=== PATIENT | male | born 1990 | race American Indian/Alaskan Native ===

== ENCOUNTER 2016-09-27 23:41 | Emergency (ER) | payer SELFPAY ==
[2016-09-28] MEDS ORDERED: ZITHROMAX PO ONE (03:48)
[2016-09-28] MEDS ORDERED: ROCEPHIN IM ONE (03:48)
[2016-09-28] MEDS ORDERED: XYLOCAINE 1% MPF 5 mL INFILTRATI ONE (03:48)
--- NOTE | 2016-09-28 03:55 | Emergency Department Report ---
ED General Adult HPI - General Chief complaint: Skin/Abscess/Foreign Body Stated complaint: RASH ON PRIVATE AREA Time Seen by Provider: 09/28/16 03:29 Source: patient Mode of arrival: Ambulatory Limitations: No Limitations - History of Present Illness Initial comments: pt is a 26 y/o aam who presents for chancroid to penile shaft x 3 days last contact 4 days ago pt denies penile discharge no abdominal pain no n/v no fever or chills - Related Data Previous Rx's Medication Instructions Recorded Last Taken Type Acetaminophen/Codeine [Tylenol #3] 1 tab PO Q4HR PRN #20 tablet 05/18/14 Unknown Rx Cephalexin [Keflex] 500 mg PO Q6HR #30 capsule 05/18/14 Unknown Rx Nystatin/Triamcin [Mycolog Cream] 10 applic TP BID #90 tube 05/18/14 Unknown Rx Hydrocortisone 1% [Hydrocortisone 1 applicatio TP TID #1 tube 07/13/14 Unknown Rx 1% CREAM] Acetaminophen/Codeine [Tylenol #3] 1 tab PO Q6H PRN #10 tab 10/07/14 Unknown Rx Cephalexin [Keflex] 500 mg PO Q12HR #6 cap 10/07/14 Unknown Rx Cephalexin [Keflex] 500 mg PO Q8HR #21 cap 10/10/14 Unknown Rx HYDROcodone/APAP 7.5-325 [[place] 1 each PO Q6HR PRN #20 tablet 10/10/14 Unknown Rx 7.5/325] Amoxicillin 500 mg PO BID #20 capsule 02/05/16 Unknown Rx Ibuprofen [Motrin] 400 mg PO Q8H PRN #20 tablet 02/05/16 Unknown Rx Doxycycline [Vibramycin CAP] 100 mg PO Q12HR #20 capsule 09/28/16 Unknown Rx Allergies Allergy/AdvReac Type Severity Reaction Status Date / Time Fish Containing Products Allergy Swelling Verified 02/05/16 07:00 pollen Allergy Headache Uncoded 02/05/16 07:00 ED Review of Systems ROS: Stated complaint: RASH ON PRIVATE AREA Other details as noted in HPI Constitutional: denies: chills, fever Eyes: denies: eye pain, eye discharge, vision change ENT: denies: ear pain, throat pain Respiratory: denies: cough, shortness of breath, wheezing Cardiovascular: denies: chest pain, palpitations Endocrine: no symptoms reported Gastrointestinal: denies: abdominal pain, nausea, diarrhea Genitourinary: denies: urgency, dysuria Musculoskeletal: denies: back pain, joint swelling, arthralgia Skin: denies: rash, lesions Neurological: denies: headache, weakness, paresthesias Psychiatric: denies: anxiety, depression Hematological/Lymphatic: as per HPI ED Past Medical Hx - Past Medical History Previous Medical History?: Yes Hx Hypertension: No Hx CVA: No Hx Congestive Heart Failure: No Hx Diabetes: No Hx GERD: No Hx Renal Disease: No Hx Sickle Cell Disease: No Hx Arthritis: No Hx Headaches / Migraines: No Hx Seizures: No Hx Kidney Stones: No Additional medical history: eczemia - Surgical History Past Surgical History?: No Hx Coronary Stent: No Hx Internal Defibrillator: No Hx Cholecystectomy: No Hx Appendectomy: No Hx Breast Surgery: No - Social History Smoking Status: Never Smoker Substance Use Type: Alcohol, Marijuana - Medications Home Medications: Home Medications Medication Instructions Recorded Confirmed Last Taken Type Acetaminophen/Codeine [Tylenol #3] 1 tab PO Q4HR PRN #20 tablet 05/18/14 Unknown Rx Cephalexin [Keflex] 500 mg PO Q6HR #30 capsule 05/18/14 Unknown Rx Nystatin/Triamcin [Mycolog Cream] 10 applic TP BID #90 tube 05/18/14 Unknown Rx Hydrocortisone 1% [Hydrocortisone 1 applicatio TP TID #1 tube 07/13/14 Unknown Rx 1% CREAM] Acetaminophen/Codeine [Tylenol #3] 1 tab PO Q6H PRN #10 tab 10/07/14 Unknown Rx Cephalexin [Keflex] 500 mg PO Q12HR #6 cap 10/07/14 Unknown Rx Cephalexin [Keflex] 500 mg PO Q8HR #21 cap 10/10/14 Unknown Rx HYDROcodone/APAP 7.5-325 [[place] 1 each PO Q6HR PRN #20 tablet 10/10/14 Unknown Rx 7.5/325] Amoxicillin 500 mg PO BID #20 capsule 02/05/16 Unknown Rx Ibuprofen [Motrin] 400 mg PO Q8H PRN #20 tablet 02/05/16 Unknown Rx Doxycycline [Vibramycin CAP] 100 mg PO Q12HR #20 capsule 09/28/16 Unknown Rx ED Physical Exam - General Limitations: No Limitations General appearance: alert, in no apparent distress - Head Head exam: Present: atraumatic, normocephalic - Eye Eye exam: Present: normal appearance - ENT ENT exam: Present: mucous membranes moist - Neck Neck exam: Present: normal inspection - Respiratory Respiratory exam: Present: normal lung sounds bilaterally. Absent: respiratory distress - Cardiovascular Cardiovascular Exam: Present: regular rate, normal rhythm. Absent: systolic murmur, diastolic murmur, rubs, gallop - GI/Abdominal GI/Abdominal exam: Present: soft, normal bowel sounds - Rectal Rectal exam: Present: deferred - exam: Present: circumcision. Absent: testicular tenderness, urethral discharge, scrotal swelling, vertical testicular lie External exam: Present: lesions (singular lesion painful yellow encrusted painful to touch no drainage noted ). Absent: erythema, swelling, lacerations, ecchymosis, bleeding - Extremities Exam Extremities exam: Present: normal inspection - Back Exam Back exam: Present: normal inspection - Neurological Exam Neurological exam: Present: alert, oriented X3 - Psychiatric Psychiatric exam: Present: normal affect, normal mood - Skin Skin exam: Present: warm, dry, intact, normal color. Absent: rash ED Course Vital Signs 09/28/16 00:02 Temperature 98.2 F Pulse Rate 63 Respiratory 18 Rate Blood Pressure 104/69 O2 Sat by Pulse 100 Oximetry ED Medical Decision Making - Medical Decision Making pt is a26 y/o aam who presents for chancroid sore to penile shaft x 3 days lesion less than 1 cm yellow encrusted painful to touch there are no other satellite lesions no rash no penile discharge no testicular pain or swelling Critical care attestation.: If time is entered above; I have spent that time in minutes in the direct care of this critically ill patient, excluding procedure time. ED Disposition Clinical Impression: Chancroid in male Disposition: DC-01 TO HOME OR SELFCARE Is pt being admited?: No Does the pt Need Aspirin: No Condition: Good Instructions: Sexually Transmitted Diseases (ED) Prescriptions: Doxycycline [Vibramycin CAP] 100 mg PO Q12HR #20 capsule Referrals: PRIMARY CARE, [Primary Care Provider] - 3-5 Days Forms: Work/School Release Form(ED) Time of Disposition: 04:01
[2016-09-28 04:35] VITALS: BP 133/83
== END 2016-09-28 04:46 | disposition home or self-care (01) ==
LOC: ED 23:41
DX: A57 Chancroid (principal); F12.10 Cannabis abuse, uncomplicated; Z88.8 Allergy status to other drugs, medicaments and biological substances; Z91.013 Allergy to seafood
CPT/HCPCS: 96372; 99282; J0696

== ENCOUNTER 2016-12-24 18:47 | Emergency (ER) | payer OTHER ==
[2016-12-24 20:56] LABS: Bilirubin,Urine NEG (Negative); Blood,Urine NEG (Negative); Ketones,Urine NEG (Negative); Leukocyte Esterase,Urine NEG (Negative); Mucus,Urine 1+ /HPF; Nitrite,Urine NEG (Negative); Protein,Urine <15 mg/dL mg/dL (Negative)
[2016-12-25] MEDS ORDERED: XYLOCAINE 1% MPF 5 mL INFILTRATI ONE (00:45)
[2016-12-25] MEDS ORDERED: ROCEPHIN IM ONE (00:45)
[2016-12-25] MEDS ORDERED: ZITHROMAX PO ONE (00:45)
--- NOTE | 2016-12-25 00:48 | Emergency Department Report ---
ED Male HPI - General Chief complaint: Urogenital-Male Stated complaint: POSSIBLE STD Time Seen by Provider: 12/25/16 00:31 Source: patient Mode of arrival: Ambulatory Limitations: No Limitations - History of Present Illness Initial comments: 26-year-old male past medical history Chlamydia and gonorrhea presents with complaint of 2 days of dysuria. Patient states he has some burning with urination and also had some burning during sex. Patient states burning sensation in his in his urethra. Patient states that his current female sex partner was diagnosed with Trichomonas this week and is currently being treated for it. Patient states she has had unprotected sex with her. Denies fevers chills abdominal pain rash and genitourinary region testicular swelling nausea or vomiting. Patient's last episode of Chlamydia/gonorrhea was in September 2016. Treated in the ED. Onset/Timin -: days(s) Location: penis Quality: burning Worsens with: urination - Related Data Sexually active: Yes Previous Rx's Medication Instructions Recorded Last Taken Type Acetaminophen/Codeine [Tylenol #3] 1 tab PO Q4HR PRN #20 tablet 05/18/14 Unknown Rx Cephalexin [Keflex] 500 mg PO Q6HR #30 capsule 05/18/14 Unknown Rx Nystatin/Triamcin [Mycolog Cream] 10 applic TP BID #90 tube 05/18/14 Unknown Rx Hydrocortisone 1% [Hydrocortisone 1 applicatio TP TID #1 tube 07/13/14 Unknown Rx 1% CREAM] Acetaminophen/Codeine [Tylenol #3] 1 tab PO Q6H PRN #10 tab 10/07/14 Unknown Rx Cephalexin [Keflex] 500 mg PO Q12HR #6 cap 10/07/14 Unknown Rx Cephalexin [Keflex] 500 mg PO Q8HR #21 cap 10/10/14 Unknown Rx HYDROcodone/APAP 7.5-325 [[place] 1 each PO Q6HR PRN #20 tablet 10/10/14 Unknown Rx 7.5/325] Amoxicillin 500 mg PO BID #20 capsule 02/05/16 Unknown Rx Ibuprofen [Motrin] 400 mg PO Q8H PRN #20 tablet 02/05/16 Unknown Rx Doxycycline [Vibramycin CAP] 100 mg PO Q12HR #20 capsule 09/28/16 Unknown Rx metroNIDAZOLE [Metronidazole] 500 mg PO BID #14 tablet 12/25/16 Unknown Rx Allergies Allergy/AdvReac Type Severity Reaction Status Date / Time Fish Containing Products Allergy Swelling Verified 02/05/16 07:00 pollen Allergy Headache Uncoded 02/05/16 07:00 ED Review of Systems ROS: Stated complaint: POSSIBLE STD Other details as noted in HPI Constitutional: denies: chills, fever Eyes: denies: eye pain, eye discharge, vision change ENT: denies: ear pain, throat pain Respiratory: denies: cough, shortness of breath, wheezing Cardiovascular: denies: chest pain, palpitations Endocrine: no symptoms reported Gastrointestinal: denies: abdominal pain, nausea, diarrhea Genitourinary: dysuria. denies: urgency Musculoskeletal: denies: back pain, joint swelling, arthralgia Skin: denies: rash, lesions Neurological: denies: headache, weakness, paresthesias Psychiatric: denies: anxiety, depression Hematological/Lymphatic: denies: easy bleeding, easy bruising ED Past Medical Hx - Past Medical History Previous Medical History?: Yes Hx Hypertension: No Hx CVA: No Hx Congestive Heart Failure: No Hx Diabetes: No Hx GERD: No Hx Renal Disease: No Hx Sickle Cell Disease: No Hx Arthritis: No Hx Headaches / Migraines: No Hx Seizures: No Hx Kidney Stones: No Additional medical history: eczemia - Surgical History Past Surgical History?: No Hx Coronary Stent: No Hx Internal Defibrillator: No Hx Cholecystectomy: No Hx Appendectomy: No Hx Breast Surgery: No - Social History Smoking Status: Current Every Day Smoker Substance Use Type: None - Medications Home Medications: Home Medications Medication Instructions Recorded Confirmed Last Taken Type Acetaminophen/Codeine [Tylenol #3] 1 tab PO Q4HR PRN #20 tablet 05/18/14 Unknown Rx Cephalexin [Keflex] 500 mg PO Q6HR #30 capsule 05/18/14 Unknown Rx Nystatin/Triamcin [Mycolog Cream] 10 applic TP BID #90 tube 05/18/14 Unknown Rx Hydrocortisone 1% [Hydrocortisone 1 applicatio TP TID #1 tube 07/13/14 Unknown Rx 1% CREAM] Acetaminophen/Codeine [Tylenol #3] 1 tab PO Q6H PRN #10 tab 10/07/14 Unknown Rx Cephalexin [Keflex] 500 mg PO Q12HR #6 cap 10/07/14 Unknown Rx Cephalexin [Keflex] 500 mg PO Q8HR #21 cap 10/10/14 Unknown Rx HYDROcodone/APAP 7.5-325 [[place] 1 each PO Q6HR PRN #20 tablet 10/10/14 Unknown Rx 7.5/325] Amoxicillin 500 mg PO BID #20 capsule 02/05/16 Unknown Rx Ibuprofen [Motrin] 400 mg PO Q8H PRN #20 tablet 02/05/16 Unknown Rx Doxycycline [Vibramycin CAP] 100 mg PO Q12HR #20 capsule 09/28/16 Unknown Rx metroNIDAZOLE [Metronidazole] 500 mg PO BID #14 tablet 12/25/16 Unknown Rx ED Physical Exam - General Limitations: No Limitations General appearance: alert, in no apparent distress - Head Head exam: Present: atraumatic, normocephalic - Eye Eye exam: Present: normal appearance - ENT ENT exam: Present: mucous membranes moist - Neck Neck exam: Present: normal inspection - Respiratory Respiratory exam: Present: normal lung sounds bilaterally. Absent: respiratory distress - Cardiovascular Cardiovascular Exam: Present: regular rate, normal rhythm. Absent: systolic murmur, diastolic murmur, rubs, gallop - GI/Abdominal GI/Abdominal exam: Present: soft, normal bowel sounds - Rectal Rectal exam: Present: deferred - exam: Present: normal inspection External exam: Present: normal external exam - Extremities Exam Extremities exam: Present: normal inspection - Back Exam Back exam: Present: normal inspection - Neurological Exam Neurological exam: Present: alert, oriented X3 - Psychiatric Psychiatric exam: Present: normal affect, normal mood - Skin Skin exam: Present: warm, dry, intact, normal color. Absent: rash ED Course Vital Signs 12/24/16 19:45 Temperature 32.1 F L Pulse Rate 61 Respiratory 16 Rate Blood Pressure 125/78 O2 Sat by Pulse 100 Oximetry ED Medical Decision Making - Medical Decision Making A/P: Urethritis, exposure to Trichomonas 1-patient empirically treated with azithromycin and ceftriaxone for symptoms of urethritis 2-GC cultures sent 3-patient given follow-up with primary care 4- course of metronidazole 5-I advised patient on safe sex practices. Patient states that his partner has been treated for Trichomonas Critical care attestation.: If time is entered above; I have spent that time in minutes in the direct care of this critically ill patient, excluding procedure time. ED Disposition Clinical Impression: Exposure to trichomonas Disposition: DC-01 TO HOME OR SELFCARE Is pt being admited?: No Does the pt Need Aspirin: No Condition: Stable Instructions: Trichomoniasis (ED), Sexually Transmitted Diseases (ED), Safe Sex (ED) Prescriptions: metroNIDAZOLE [Metronidazole] 500 mg PO BID #14 tablet Referrals: [facility] [Outside] - 3-5 Days [facility] [Outside] - 3-5 Days Forms: Accompanied Note Time of Disposition: 00:45
[2016-12-25 01:05] VITALS: BP 124/77
== END 2016-12-25 01:25 | disposition home or self-care (01) ==
LOC: ED 18:47
DX: R30.0 Dysuria (principal); Z20.828 Contact with and (suspected) exposure to other viral communicable diseases; F17.200 Nicotine dependence, unspecified, uncomplicated
CPT/HCPCS: 81001; 96372; 99283; J0696

== ENCOUNTER 2019-02-18 08:07 | Emergency (ER) | payer SELFPAY ==
[2019-02-18 08:18] VITALS: BP 142/83
--- NOTE | 2019-02-18 09:32 | Emergency Department Report ---
Chief Complaint: Extremity Injury, Upper Stated Complaint: R HAND INJURY Time Seen by Provider: 02/18/19 09:26 - HPI History of Present Illness: This is a 28-year-old male nontoxic, well nourished in appearance, no acute signs of distress presents to the ED with c/o of hard cast placement. Patient stating he was seen at [facility] on February 01 and had a fracture to right fifth finger. Patient denies any follow-up with a orthopedic doctor. Patient denies any numbness. Patient agrees to range of motion. Patient denies sensation of decreased. Patient is neurovascular intact. Normal capillary refill. Able to move all extremities. Patient denies any chest pain, shortness of breath, fever, chills, nausea, vomiting, headache or stiff neck. Patient otherwise denies any symptoms. - Exam Vital Signs: Vital Signs 02/18/19 08:17 Temperature 97.5 F L Pulse Rate 85 Respiratory 18 Rate Blood Pressure 142/83 O2 Sat by Pulse 99 Oximetry Physical Exam: Neurovascular intact. Normal capillary refill less than 2 seconds. Normal sensation. Splint not too tight. MSE screening note: Focused history and physical exam performed. Due to findings the following was ordered: ED Medical Decision Making - Medical Decision Making This is a 28-year-old male that presents with nonmedical emergency. Patient is stable and was examined by me. Patient is asymptomatic and denies any symptoms. I will refer the patient [facility] and orthopedic doctor. At time of discharge, the patient does not seem toxic or ill in appearance. No acute signs of distress noted. Patient agrees to discharge treatment plan of care. No further questions noted by the patient. ED Disposition for MSE Clinical Impression: Encounter for cast change Disposition: Z-07 MED SCREENING EXAM-LEFT Is pt being admited?: No Does the pt Need Aspirin: No Condition: Stable Additional Instructions: Follow-up with a orthopedic doctor and or [facility] in 3-5 days or if symptoms worsen and continue return to emergency room as soon as possible. Referrals: INGRID MURILLO MD [Primary Care Provider] - 3-5 Days ELLEN HELLER MD [Staff Physician] - 3-5 Days [facility] [Outside] - 3-5 Days
== END 2019-02-18 09:30 | disposition left against medical advice (07) ==
LOC: ED 08:07
DX: Z46.89 Encounter for fitting and adjustment of other specified devices (principal)
CPT/HCPCS: 99281